=== PATIENT | male | born 1995 | race American Indian/Alaskan Native ===

== ENCOUNTER 2018-07-02 22:53 | Emergency (ER) | payer MEDICAID ==
[2018-07-02 23:07] VITALS: TEMP 98.4
[2018-07-02] MEDS ORDERED: Sodium Chloride 0.9% 1,000 ML IV ONE (23:14)
--- NOTE | 2018-07-02 23:14 | C.PDOC ---
History Of Present Illness Patient presents with mid epigastric pain associated with some vomiting since 4pm. Patient has Hx of pancreatitis and ETOH abuse but states he no longer drinks. Denies fever or chills. Time Seen by Provider: 07/02/18 23:14 Chief Complaint (Nursing): Abdominal Pain History Per: Patient History/Exam Limitations: no limitations Onset/Duration Of Symptoms: Hrs Current Symptoms Are (Timing): Still Present Severity: Moderate Pain Scale Rating Of: 5 Location Of Pain/Discomfort: Epigastric Radiation Of Pain To:: None Quality Of Discomfort: Unable To Describe Associated Symptoms: Vomiting. denies: Fever, Chills Exacerbating Factors: None Alleviating Factors: None Recent travel outside of the [place]: No Past Medical History Reviewed: Historical Data, Nursing Documentation, Vital Signs Vital Signs: Last Vital Signs Temp 98.4 F 07/02/18 23:00 Pulse 94 H 07/02/18 23:00 Resp 22 07/02/18 23:00 BP 129/85 07/02/18 23:00 Pulse Ox 100 07/02/18 23:00 - Medical History PMH: Pancreatitis Family History: States: No Known Family Hx - Social History Hx Alcohol Use: Yes Hx Substance Use: No - Immunization History Hx Tetanus Toxoid Vaccination: No Hx Influenza Vaccination: No Hx Pneumococcal Vaccination: No Review Of Systems Constitutional: Negative for: Fever, Chills Cardiovascular: Negative for: Chest Pain, Palpitations Respiratory: Negative for: Cough, Shortness of Breath Gastrointestinal: Positive for: Vomiting, Abdominal Pain Neurological: Negative for: Weakness, Numbness Physical Exam - Physical Exam Appears: Non-toxic Skin: Warm, Dry Head: Normacephalic Oral Mucosa: Moist Neck: Trachea Midline, Supple Chest: Symmetrical, No Tenderness Cardiovascular: Rhythm Regular Respiratory: No Rales, No Rhonchi, No Wheezing Gastrointestinal/Abdominal: Soft, Tenderness (Mid epigastric), No Guarding, No Rebound Neurological/Psych: Oriented x3 ED Course And Treatment - Laboratory Results Result Diagrams: 07/03/18 00:14 07/03/18 00:14 O2 Sat by Pulse Oximetry: 100 (Room air) Pulse Ox Interpretation: Normal Progress Note: Blood work ordered. Protonix, toradol, zofran, and IV fluids administered. Reevaluation Time: 03:37 Reassessment Condition: Improved Disposition Counseled Patient/Family Regarding: Studies Performed, Diagnosis, Need For Foll owup, Rx Given - Disposition Referrals: [facility] [Outside] [facility] [Outside] Disposition: HOME/ ROUTINE Disposition Time: 23:14 Condition: FAIR Additional Instructions: Please return if symptoms recur Prescriptions: traMADol [Ultram] 50 mg PO QID PRN #20 tab PRN Reason: Pain, Severe (8-10) Instructions: Acute Abdomen (Belly Pain), Adult (DC), Chronic Pancreatitis (DC) Forms: [employer] ([place]an) - Clinical Impression Clinical Impression: Abdominal pain, Chronic pancreatitis - Scribe Statement The provider has reviewed the documentation as recorded by the Scribe Calros German All medical record entries made by the Yiselibe were at my direction and personally dictated by me. I have reviewed the chart and agree that the record accurately reflects my personal performance of the history, physical exam, medical decision making, and the department course for this patient. I have also personally directed, reviewed, and agree with the discharge instructions and disposition.
[2018-07-03 00:22] LABS: BASO % 0.6 % (0.0-2.0); EOS # 0.1 K/uL (0.0-0.7); EOS % 1.1 % (0.0-4.0); HEMOGLOBIN 14.5 g/dL (12.0-18.0); LYMPH # 2.5 K/uL (1.0-4.3); MEAN CELL VOLUME 90.7 fL (80.0-94.0); MEAN CORPUSCULAR HEMOGLOBIN 31.4 pg (27.0-31.0); MEAN CORPUSCULAR HGB CONC 34.7 g/dL (33.0-37.0); MEAN PLATELET VOLUME 8.2 fL (7.2-11.7); MONO # 0.3 K/uL (0.0-0.8); MONO % 5.2 % (0.0-10.0); NEUT # 3.3 K/uL (1.8-7.0); NEUT % 53.1 % (50.0-75.0); NRBC % 0.1 % (0.0-2.0); RBC 4.63 Mil/uL (4.40-5.90); RED CELL DISTRIBUTION WIDTH 13.2 % (11.5-14.5); WHITE BLOOD COUNT 6.1 K/uL (4.8-10.8)
[2018-07-03 00:41] LABS: BLOOD UREA NITROGEN 16 mg/dL (9-20); CALCIUM 9.6 mg/dl (8.6-10.4); GFR NON-AFRICAN AMERICAN > 60; LIPASE 244 U/L (23-300)
[2018-07-03 00:46] LABS: ALB/GLOB RATIO 1.5 (1.0-2.1); ALBUMIN 4.9 g/dL (3.5-5.0); ALT/SGPT 102 U/L (21-72); AST/SGOT 169 U/L (17-59)
[2018-07-03 00:50] LABS: B-TYPE NATRIURETIC PEPTIDE 51.5 pg/mL (0-450)
[2018-07-03 01:05] LABS: INR 1.3; PROTHROMBIN TIME 14.1 SECONDS (9.7-12.2)
[2018-07-03] MEDS ORDERED: Iodixanol 320 MG/ML 100 ML BOTTLE IV ONE (01:44)
[2018-07-03 04:01] VITALS: BP 130/70; PULSE 70; RESP 14; O2SAT 99
--- NOTE | 2018-07-03 09:11 | CT ---
CT abdomen and pelvis HISTORY: Abdominal pain. Pancreatitis. COMPARISON: None available. Technique: Multiple contiguous axial images were performed through the abdomen and pelvis with the use of intravenous contrast. Subsequently, sagittal and coronal reformatted images were obtained. This CT exam was performed using one or more of the following dose reduction techniques: Automated exposure control, adjustment of the mA and/or kV according to patient size, and/or use of iterative reconstruction technique. Findings: Lung bases are clear. No pleural or pericardial effusion. Prominent liver with mild fatty infiltration. Gallbladder is preserved. Spleen is preserved. Adrenal glands are preserved. Focal thickening and heterogeneity at the level of the pancreatic head with adjacent fluid and edema seen within the peripancreatic soft tissues at the level of the pancreatic head and uncinate process suggestive for a focal acute pancreatitis. Continued interval follow-up would be helpful to ensure resolution and exclude developing phlegmon collection and or underlying lesion. Clinical correlation. Upper abdominal bowel is grossly preserved. Right kidney: No calculi or hydronephrosis. Left Kidney: No calculi or hydronephrosis. Urinary bladder is preserved. Heterogeneous prostate and seminal vesicles. Underdistended and or mildly thickened left hemicolon including the transverse colon with some reactive thickening at the level of the hepatic flexure of the colon. Appendix is partially imaged and within normal limits. Few shotty para-aortic and inguinal lymph nodes. Few shotty mesenteric lymph nodes. Degenerative changes in the spine. Impression: 1. Focal thickening and heterogeneity at the level of the pancreatic head with adjacent fluid and edema seen within the peripancreatic soft tissues at the level of the pancreatic head and uncinate process suggestive for a focal acute pancreatitis. Continued interval follow-up would be helpful to ensure resolution and exclude developing phlegmon collection and or underlying lesion. Clinical correlation. 2. Underdistended and or mildly thickened left hemicolon including the transverse colon with some reactive thickening at the level of the hepatic flexure of the colon. 3. Prominent liver with mild fatty infiltration. Additional findings as above. A preliminary report was generated at 3:26 a.m. on 07/03/[address] Og Ndiaye from [email or web address].
== END 2018-07-03 04:00 | disposition home or self-care (01) ==
LOC: C.ER 22:53
DX: K86.1 Other chronic pancreatitis (principal); R10.13 Epigastric pain
CPT/HCPCS: 74177; 80053; 80320; 83690; 83880; 84484; 85025; 85610; 85730; 96374; 96375; 99283; C9113; J1885; J2405; J7030; Q9967